=== PATIENT | female | born 1975 | race Two or more races ===

== ENCOUNTER 2020-10-26 00:25 | Emergency (ER) | payer BC, OTHER ==
[~2020-10-26] VITALS: Ht 160 cm; Wt 88.3 kg
--- NOTE | 2020-10-26 01:02 | NUR ---
health information systems technician: pt from lobby to room 15
--- NOTE | 2020-10-26 01:14 | NUR ---
PT A&OX4, NO ACUTE DISTRESS AT THIS TIME, PLACED ON CR MONITOR IN ROOM. PT WITH NO COMPLAINTS OF PAIN AT THIS TIME. SIDERAILS UP X2 AND CALL LIGHT WITHIN REACH. PT IS PLEASANT AND COOPERATIVE.
--- NOTE | 2020-10-26 01:25 | NUR ---
portable xray done. pt tolerated well. no distress at this time.
[2020-10-26 01:38] LABS: ALBUMIN 3.8 g/dL (3.4-5.0); ANION GAP 5 mmol/L (5-15); CALCIUM 8.5 mg/dL (8.5-10.1); CHLORIDE 110 mmol/L (98-107); CREATININE 0.77 mg/dL (0.55-1.02)
[2020-10-26 01:45] LABS: BASOPHILS % (AUTO) 0 % (0-1); EOSINOPHILS % (AUTO) 1 % (1-7); LYMPHOCYTES % (AUTO) 32 % (22-44); MEAN CORPUSCULAR HEMOGLOBIN 32.1 pg (27.0-34.8); MEAN CORPUSCULAR HGB CONC 35.1 g/dL (32.4-35.8); MEAN PLATELET VOLUME 9.6 fL (7.4-10.4); MONOCYTES % (AUTO) 8 % (2-9); NEUTROPHILS % (AUTO) 59 % (42-75); PLATELET COUNT 208 x10^3/uL (130-400); RED BLOOD COUNT 4.01 x10^6/uL (3.82-5.3)
[2020-10-26 01:48] LABS: TROPONIN I < 0.015 ng/mL (0.000-0.045)
[2020-10-26 01:52] LABS: MD NO
--- NOTE | 2020-10-26 02:05 | NUR ---
pt resting comfortably, and no acute distress. Waiting on xray to be read by radiologist.
[2020-10-26 03:07] VITALS: BP 140/85
--- NOTE | 2020-10-26 03:07 | NUR ---
PT AWAKE AND ALERT, NO DISTRESS. PA TO BEDSIDE TO SPEAK WITH PEOPLE AND UPDATE ON ALL TESTS RESULTS. WARM BLANKETS PROVIDED AND AT BEDSIDE.
--- NOTE | 2020-10-26 03:15 | NUR ---
F/U AND D/C INSTRUCTIONS GIVEN TO PT AND SHE V/U. PA TO BEDSIDE TO SPEAK WITH PT AND SHE UNDERSTOOD, AND AGREES. AND WILL FOLLOW UP WITH CARDIOLOGY. PT AMBULATORY AND D/C'D WITHOUT INCIDENT.
== END 2020-10-26 03:17 | disposition home or self-care (01) ==
LOC: ED 03:15
DX: R00.2 Palpitations (principal)
CPT/HCPCS: 36415; 71045; 80048; 82040; 84443; 84484; 84703; 85025; 93005; 99285